=== PATIENT | female | born 1995 | race Caucasian/White ===

== ENCOUNTER 2018-01-29 10:44 | Emergency (ER) | payer MEDICAID, SELFPAY ==
[2018-01-29 10:46] VITALS: BP 127/76; PULSE 72; RESP 19; TEMP 37
--- NOTE | 2018-01-29 10:56 | W.ED.GENAD ---
Discharge Plan Disposition Patient Disposition: HOME Condition: Stable Discharge Details Chief Complaint: Dizzy/Sync Clinical Impression: Syncope ED Provider: Regan Gibson Home Meds and New Rx's Prescriptions: Continue levonorgestrel-ethinyl estrad [Falmina (28)] 1 EACH tablet 1 tab PO DAILY RF: 0 amoxicillin 500 MG capsule RF: 0 nitrofurantoin monohyd/m-cryst [Macrobid] 100 MG capsule 100 mg PO BID Qty: 9 RF: 0 ondansetron 4 MG tablet,disintegrating 4 mg PO QID PRN PRN (Reason: Nausea) Qty: 6 RF: 0 Discharge Instructions Instructions: Syncope (ED) Additional Instructions: Follow up with your primary care provider within 2-3 weeks if you have severe worsening pain or difficulty breathing, or severe headaches return to the emergency department for reevaluation Medical Decision Making 22 yo female comes in with complaint of syncope. She states she has a hx of anxiety and episodes of passing out due to this. States she was meeting with her professor and has been under stress recently in college, felt lightheaded vision went dark and she passed out. Denies any chest pain/pressure, sob, abd pain, vaginal bleeding or headache. She denies any drug use, is caox4 with no focal neuro deficits. 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 No evidence of wpw on ekg. Will eval for anemia and electrolyte abnormalities and chech hcg. She has no evidence of dvt on exam, no tachycardia or hypoxia so do not feel Pe workup indicated labs unremarkable, some evidence of mild dehydration, remains stable here with normal vitals. Feel she is safe for d/c, advised f/u with pcp and return precautions given Differential Diagnosis anxiety, psychogenic syncope, electrolyte abnormality Lab Data Lab results reviewed: Yes I reviewed the patient's lab results. ECG Data Attestation: I personally reviewed and interpreted this ECG (s) as follows: Prior ECG tracings: not available for review Interpretation: sinus rhythm, rate of 68, pr 116, no acute st t wave changes and no evidence of delta waves HPI General Mode of arrival: EMS. Date/Time Provider Initiated Documentation: 01/29/18 10:55. Limitations to Documentation: no limitations. Information obtained by: patient. History of Present Illness 22 year old F presents to the emergency department with the chief complaint of syncope, described as moderate, Patient started experiencing this hour(s) (1) and it has been now resolved. No relieving factors improve symptom(s), No exacerbating factors reported . Patient notes other (anxiety). Patient did receive the following treatments prior to arrival, none Related Data Home Medications Medication Instructions Recorded Confirmed levonorgestrel-ethinyl estrad 1 tab PO DAILY 10/29/15 11/19/15 [Falmina (28)] amoxicillin 11/14/15 nitrofurantoin monohyd/m-cryst 100 mg PO BID #9 capsule 11/14/15 11/19/15 [Macrobid] ondansetron 4 mg PO QID PRN PRN #6 tabef 11/19/15 Previous Rx's Medication Instructions Recorded nitrofurantoin monohyd/m-cryst 100 mg PO BID #9 capsule 11/14/15 [Macrobid] ondansetron 4 mg PO QID PRN PRN #6 tabef 11/19/15 Allergies Allergy/AdvReac Type Severity Reaction Status Date / Time codeine AdvReac Severe Nausea Unverified 11/19/15 16:27 General Stated Complaint: Dizzy/Sync ARMEN: 3 Review of Systems Review of Systems All systems reviewed & are unremarkable except as noted in HPI and below Constitutional Denies chills, Denies fever(s) and Denies weakness ENT Denies change in voice Cardiovascular Denies chest pain and Denies dyspnea Respiratory Denies dyspnea Gastrointestinal Denies abdominal pain, Denies nausea and Denies vomiting Musculoskeletal Denies joint swelling Integumentary/Breasts Denies rash Neurologic Denies weakness Psychiatric Denies homicidal ideation and Denies suicidal ideation Endocrine Denies cold intolerance and Denies heat intolerance [facility] Social History Smoking/Tobacco Use Status: Never Social History Smoking/Tobacco Use Status: Never Exam Const General: no acute distress Orientation: alert HENMO Head: normal to inspection Ears: external ears normal General nose exam: external nose normal Mouth: moist mucous membranes Eyes General: appearance normal, both eyes and all related structures Neck Neck: normal visual inspection Resp Effort & Inspection: normal respiratory effort and able to speak in complete sentences Cardio Rate: regular rate Skin General skin exam: no rashes or lesions noted Neuro General: alert and oriented x3 Extrem General: normal to inspection Psych Mental Status: mental status grossly normal Course Vital Signs Temperature 37.0 C 01/29/18 10:46 Pulse 72 01/29/18 10:46 Respiratory Rate 19 01/29/18 10:46 Blood Pressure 127/76 01/29/18 10:46 Temperature 37.0 C 01/29/18 10:46 Temperature Source Temporal Artery Scan 01/29/18 10:46 Pulse 72 01/29/18 10:46 Respiratory Rate 19 01/29/18 10:46 Blood Pressure 127/76 01/29/18 10:46 Blood Pressure Position Supine 01/29/18 10:46 Oxygen Delivery Method Room Air 01/29/18 10:46 Oxygen Flow Rate 0 01/29/18 10:46 Pain Level 4 01/29/18 10:46
--- NOTE | 2018-01-29 11:09 | ED.GENADUL_ITS ---
Discharge Plan Disposition Patient Disposition: HOME Condition: Stable Discharge Details Chief Complaint: Dizzy/Sync Clinical Impression: Syncope ED Provider: Regan Gibson Home Meds and New Rx's Prescriptions: Continue levonorgestrel-ethinyl estrad [Falmina (28)] 1 EACH tablet 1 tab PO DAILY RF: 0 amoxicillin 500 MG capsule RF: 0 nitrofurantoin monohyd/m-cryst [Macrobid] 100 MG capsule 100 mg PO BID Qty: 9 RF: 0 ondansetron 4 MG tablet,disintegrating 4 mg PO QID PRN PRN (Reason: Nausea) Qty: 6 RF: 0 Discharge Instructions Instructions: Syncope (ED) Additional Instructions: Follow up with your primary care provider within 2-3 weeks if you have severe worsening pain or difficulty breathing, or severe headaches return to the emergency department for reevaluation Medical Decision Making 22 yo female comes in with complaint of syncope. She states she has a hx of anxiety and episodes of passing out due to this. States she was meeting with her professor and has been under stress recently in college, felt lightheaded vision went dark and she passed out. Denies any chest pain/pressure, sob, abd pain, vaginal bleeding or headache. She denies any drug use, is caox4 with no focal neuro deficits. 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 No evidence of wpw on ekg. Will eval for anemia and electrolyte abnormalities and chech hcg. She has no evidence of dvt on exam, no tachycardia or hypoxia so do not feel Pe workup indicated labs unremarkable, some evidence of mild dehydration, remains stable here with normal vitals. Feel she is safe for d/c, advised f/u with pcp and return precautions given Differential Diagnosis anxiety, psychogenic syncope, electrolyte abnormality Lab Data Lab results reviewed: Yes I reviewed the patient's lab results. ECG Data Attestation: I personally reviewed and interpreted this ECG (s) as follows: Prior ECG tracings: not available for review Interpretation: sinus rhythm, rate of 68, pr 116, no acute st t wave changes and no evidence of delta waves HPI General Mode of arrival: EMS . Date/Time Provider Initiated Documentation: 01/29/18 10:55 . Limitations to Documentation: no limitations . Information obtained by: patient . History of Present Illness 22 year old F presents to the emergency department with the chief complaint of syncope, described as moderate, Patient started experiencing this hour(s) (1 ) and it has been now resolved. No relieving factors improve symptom(s), No exacerbating factors reported . Patient notes other (anxiety). Patient did receive the following treatments prior to arrival, none Related Data Home Medications Medication Instructions Recorded Confirmed levonorgestrel-ethinyl estrad 1 tab PO DAILY 10/29/15 11/19/15 [Falmina (28)] amoxicillin 11/14/15 nitrofurantoin monohyd/m-cryst 100 mg PO BID #9 capsule 11/14/15 11/19/15 [Macrobid] ondansetron 4 mg PO QID PRN PRN #6 tabef 11/19/15 Previous Rx's Medication Instructions Recorded nitrofurantoin monohyd/m-cryst 100 mg PO BID #9 capsule 11/14/15 [Macrobid] ondansetron 4 mg PO QID PRN PRN #6 tabef 11/19/15 Allergies Allergy/AdvReac Type Severity Reaction Status Date / Time codeine AdvReac Severe Nausea Unverified 11/19/15 16:27 General Stated Complaint: Dizzy/Sync ARMEN: 3 Review of Systems Review of Systems All systems reviewed & are unremarkable except as noted in HPI and below Constitutional Denies chills, Denies fever(s) and Denies weakness ENT Denies change in voice Cardiovascular Denies chest pain and Denies dyspnea Respiratory Denies dyspnea Gastrointestinal Denies abdominal pain, Denies nausea and Denies vomiting Musculoskeletal Denies joint swelling Integumentary/Breasts Denies rash Neurologic Denies weakness Psychiatric Denies homicidal ideation and Denies suicidal ideation Endocrine Denies cold intolerance and Denies heat intolerance [facility] Social History Smoking/Tobacco Use Status: Never Social History Smoking/Tobacco Use Status: Never Exam Const General: no acute distress Orientation: alert HENDE Head: normal to inspection Ears: external ears normal General nose exam: external nose normal Mouth: moist mucous membranes Eyes General: appearance normal, both eyes and all related structures Neck Neck: normal visual inspection Resp Effort & Inspection: normal respiratory effort and able to speak in complete sentences Cardio Rate: regular rate Skin General skin exam: no rashes or lesions noted Neuro General: alert and oriented x3 Extrem General: normal to inspection Psych Mental Status: mental status grossly normal Course Vital Signs Temperature 37.0 C 01/29/18 10:46 Pulse 72 01/29/18 10:46 Respiratory Rate 19 01/29/18 10:46 Blood Pressure 127/76 01/29/18 10:46 Temperature 37.0 C 01/29/18 10:46 Temperature Source Temporal Artery Scan 01/29/18 10:46 Pulse 72 01/29/18 10:46 Respiratory Rate 19 01/29/18 10:46 Blood Pressure 127/76 01/29/18 10:46 Blood Pressure Position Supine 01/29/18 10:46 Oxygen Delivery Method Room Air 01/29/18 10:46 Oxygen Flow Rate 0 01/29/18 10:46 Pain Level 4 01/29/18 10:46
[2018-01-29 11:12] LABS: Absolute Basophil Count 0.02 k/cumm (0.0-0.2); Absolute Eosinophil Count 0.06 k/cumm (0.0-0.7); Absolute Lymphocyte Count 1.86 k/cumm (1.2-3.4); Absolute Monocyte Count 0.61 k/cumm (0.11-0.7); Absolute Neutrophil Count 2.48 k/cumm (1.2-6.7); Basophils % 0.4; Eosinophils % 1.2; HGB 15.4 g/dL (12.0-15.5); Mean Corp. HGB Concentration 34.2 g/dL (32.0-36.0); Mean Corpuscular Hemoglobin 29.2 pg (27.0-33.0); Mean Corpuscular Volume 85.2 fL (80-95); Mean Platelet Volume 9.6 fL (8.0-11.0); Monocytes % 12.1; Neutrophils % 49.3; Platelet Count 231 x1000/uL (130-400); RBC 5.28 m/cumm (4.00-5.20); RBC Distribution Width 13.3 % (11.7-14.6); White Blood Cell Count 5.03 k/cumm (4.4-10.8)
[2018-01-29 11:25] LABS: ALT 25 U/L (12-78); AST 22 U/L (15-37); Albumin 4.4 g/dL (3.4-5.0); Alkaline Phosphatase 68 U/L (46-116); BUN 16 mg/dL (7-18); Bilirubin, Total 0.6 mg/dL (0.2-1.0); Calcium 9.8 mg/dL (8.5-10.1); Chloride 104 mmol/L (98-107); Glucose 82 mg/dL (70-100); Potassium 4.4 mmol/L (3.5-5.1); Sodium 139 mmol/L (136-145); Total Protein 8.4 g/dL (6.4-8.2)
[2018-01-29 11:43] VITALS: BP 119/75; PULSE 72; RESP 17; TEMP 37.1; O2SAT 98
== END 2018-01-29 12:08 | disposition home or self-care (01) ==
PROVIDERS: Emergency Provider Emergency Medicine; PCP Naturopath
DX: R55 Syncope and collapse (principal)
CPT/HCPCS: 36415; 80053; 93005; 99284; 85025; 93010

== ENCOUNTER 2018-12-12 11:50 | Emergency (ER) | payer MEDICAID, SELFPAY ==
[2018-12-12 11:52] VITALS: BP 142/91; PULSE 88; RESP 16; TEMP 36.4; O2SAT 99
[2018-12-12 12:15] VITALS: RESP 20
[2018-12-12 12:53] LABS: Abs Immature Grans 0.01 k/cumm (0.0-0.09); Absolute Basophil Count 0.01 k/cumm (0.0-0.2); Absolute Eosinophil Count 0.03 k/cumm (0.0-0.7); Absolute Lymphocyte Count 1.65 k/cumm (1.2-3.4); Absolute Monocyte Count 0.43 k/cumm (0.11-0.7); Absolute Neutrophil Count 3.02 k/cumm (1.2-6.7); Basophils % 0.2; Eosinophils % 0.6; HCT 42.2 % (36.0-46.0); HGB 13.9 g/dL (12.0-15.5); Immature Grans % 0.2; Mean Corp. HGB Concentration 32.9 g/dL (32.0-36.0); Mean Corpuscular Hemoglobin 28.5 pg (27.0-33.0); Mean Corpuscular Volume 86.5 fL (80-95); Mean Platelet Volume 9.6 fL (8.0-11.0); Monocytes % 8.3; Neutrophils % 58.7; Platelet Count 237 x1000/uL (130-400); RBC 4.88 m/cumm (4.00-5.20); RBC Distribution Width 13.6 % (11.7-14.6); White Blood Cell Count 5.15 k/cumm (4.4-10.8)
[2018-12-12] MEDS: Normal Saline 1,000 ML 1000 ML IV (12:55)
[2018-12-12] MEDS: Normal Saline Flush 10 ML SYR IVP (12:56)
[2018-12-12 12:57] LABS: ALT 14 U/L (14-59); AST 16 U/L (15-37); Alkaline Phosphatase 51 U/L (46-116); BUN 16 mg/dL (7-18); Bilirubin, Total 0.4 mg/dL (0.2-1.0); CREATININE 1.09 mg/dL (0.55-1.02); Calcium 9.1 mg/dL (8.5-10.1); Chloride 103 mmol/L (98-107); Glucose 84 mg/dL (70-100); Magnesium 1.9 mg/dL (1.8-2.4); Sodium 139 mmol/L (136-145); Total Protein 7.8 g/dL (6.4-8.2)
[2018-12-12 12:59] LABS: Bilirubin Negative (Negative); Blood Negative (Negative); Clarity Clear (Clear); Glucose Negative (Negative); Ketones Negative (Negative); Leukocyte Esterase Negative (Negative); Nitrite Negative (Negative); Specific Gravity 1.025 (1.005-1.025); Urobilinogen 0.2 EU/dL (Up TO 0.2); pH 5.5 (5-8)
--- NOTE | 2018-12-12 13:03 | W.ED.GENAD ---
Discharge Plan Disposition Patient Disposition: HOME Condition: Improving Discharge Details Chief Complaint: GenMedical Clinical Impression: Spasm of thoracic back muscle Primary Care Provider: Ria Paulson ED Provider: Lei Jacinto Home Meds and New Rx's Prescriptions: No Action levonorgestrel-ethinyl estrad [Falmina (28)] 1 EACH tablet 1 tab PO DAILY RF: 0 ondansetron 4 MG tablet,disintegrating 4 mg PO QID PRN PRN (Reason: Nausea) Qty: 6 RF: 0 fluoxetine [Prozac] 10 mg Capsule 10 mg PO DAILY RF: 0 Discharge Instructions Instructions: Muscle Spasm (ED) Additional Instructions: Continue to stay well-hydrated and get plenty of rest and reduce any significant physical activity. You may continue to take 600 mg of ibuprofen every 6 hours as needed for discomfort. If lidocaine patch is effective you may purchase these [id number] and use as directed on packaging. Return immediately to the emergency department for any new or significant worsening of symptoms otherwise follow-up with your primary care provider Stand Alone Forms: School Release Referrals: Ria Paulson [Primary Care Provider] - (As needed for reassessment or if not improving) Discharge Data Discharge Date/Time-TO BE ENTERED AT DEPARTURE: 12/12/18 14:25 Medical Decision Making Patient presenting to the emergency department for chief complaint of back pain. Patient states that this started yesterday evening and feels sharpening and spasming in nature. Patient does report that 2 days ago she was mountain biking and testing out mountain bikes and when she finished riding she stood up off the bike and noted some lightheadedness that then turned into a syncopal event. Patient did call EMS but by the time they got there her symptoms had fully resolved. Since then she has noted some odd and intermittent muscle cramping. Patient does state history of vasovagal events in the past and so the syncopal episode is not completely uncommon to her. Patient denies any chest pain, shortness of breath, or difficulty breathing. Physical exam shows significant muscular spasm with movement to the mid thoracic spine and patient is slightly anxious otherwise unremarkable exam. Given patient's muscular spasms plan to check labs. Patient given IV fluids pending test and labs. After review of labs that show a mild increase of creatinine and otherwise unremarkable CBC CMP and magnesium patient was reassessed. Patient stated significant improvement of symptoms but did have some mild continued spasms. Patient offered ketorolac, Flexeril, lidocaine patch. Patient actually denied any of these medications given that she is feeling significant better after fluids. Given otherwise unremarkable work-up and physical exam showing muscular spasms with symptoms improving I do not feel that any other interventions are needed for muscular spasms. Given syncopal event close return precautions were discussed with patient. For pain and discomfort patient was encouraged to use 600 mg of ibuprofen every 6 hours as needed. After discussion of diagnosis and plan of care patient has no further needs, questions, or concerns and states clear understanding to return to the emergency department for any worsening symptoms. HPI General Mode of arrival: ambulatory. Date/Time Provider Initiated Documentation: 12/12/18 12:01. Limitations to Documentation: no limitations. Information obtained by: patient and RN notes reviewed. History of Present Illness 23 year old F presents to the emergency department with the chief complaint of left rib pain, described as moderate, with intensity rated at 7. Quality is described as sharp, and is localized to the chest and left (Posterior). Patient started experiencing this day(s) (1) and it has been intermittent. Rest improves symptom(s), Movement worsens symptoms . Patient did receive the following treatments prior to arrival, none Related Data Home Medications Medication Instructions Recorded Confirmed levonorgestrel-ethinyl estrad 1 tab PO DAILY 10/29/15 12/12/18 [Falmina (28)] ondansetron 4 mg PO QID PRN PRN #6 tabef 11/19/15 12/12/18 fluoxetine [Prozac] 10 mg PO DAILY 12/12/18 12/12/18 Previous Rx's Medication Instructions Recorded ondansetron 4 mg PO QID PRN PRN #6 tabef 11/19/15 Allergies Allergy/AdvReac Type Severity Reaction Status Date / Time codeine AdvReac Severe Nausea Unverified 12/12/18 11:57 General Stated Complaint: GenMedical ARMEN: 3 Review of Systems Constitutional Constitutional: Reports fatigue, Denies fever(s), Denies headache(s) and Reports malaise ENT Ears, Nose, Mouth, and Throat: Denies headache(s) Cardiovascular Cardiovascular: Reports syncope, Reports lightheadedness, Denies palpitations and Denies dyspnea Respiratory Respiratory: Denies cough and Denies dyspnea Gastrointestinal Gastrointestinal: Denies abdominal pain, Reports nausea and Denies vomiting Neurologic Neurologic: Reports syncope, Denies headache(s) and Denies sensory deficit Endocrine Endocrine: Reports fatigue and Denies palpitations [facility] Social History Smoking/Tobacco Use Status: Never Drug use: Socially Substance use type: marijuana Do you feel safe in your relationship?: Yes Exam Const General: cooperative, healthy appearing, no acute distress and well groomed Orientation: alert, awake and oriented x3 HENMT Head: normal to inspection Mouth: oral mucosae normal and moist mucous membranes Throat: posterior oropharynx normal, tonsils normal and uvula midline Eyes Visual Rangel: normal visual rangel by confrontation Alignment and Position: alignment normal Periorbital: periorbital findings normal Eyelids: eyelids normal Sclera: sclerae normal Cornea: corneas normal Pupils: PERRL EOM: EOM intact bilaterally Neck Neck: normal visual inspection, full ROM, no lymphadenopathy and no meningeal signs Resp Effort & Inspection: normal respiratory effort and able to speak in complete sentences Auscultation: clear to auscultation bilaterally Cardio Rate: regular rate Rhythm: regular rhythm Heart Sounds: S1 normal and S2 normal Neuro General: alert, awake, oriented x3, gait normal, tone normal, moves all extremities and not confused Cognition: normal cognition Speech: speech normal Motor: muscle tone normal throughout, strength 5/5 throughout and no pronator drift Sensory Exam: no sensory deficits noted Course Vital Signs Vital signs: Vital Signs Temperature 36.4 C L 12/12/18 11:52 Pulse 88 12/12/18 11:52 Respiratory Rate 16 12/12/18 11:52 Blood Pressure 142/91 H 12/12/18 11:52 Pulse Oximetry 99 12/12/18 11:52 Temperature 36.4 C L 12/12/18 11:52 Temperature Source Skin 12/12/18 11:52 Pulse 88 12/12/18 11:52 Respiratory Rate 16 12/12/18 11:52 Respiratory Effort 12/12/18 11:59 Blood Pressure 142/91 H 12/12/18 11:52 Blood Pressure Position Sitting 12/12/18 11:52 Pulse Oximetry 99 12/12/18 11:52 Oxygen Delivery Method Room Air 12/12/18 11:52 Oxygen Flow Rate 0 12/12/18 11:52 Lab/Test Results Lab/Test Results: Laboratory Tests Range/Units 12/12/18 12/12/18 12:37 12:45 WBC (4.4-10.8) k/cumm 5.15 RBC (4.00-5.20) m/cumm 4.88 Hgb (12.0-15.5) g/dL 13.9 Hct (36.0-46.0) % 42.2 MCV (80-95) fL 86.5 MCH (27.0-33.0) pg 28.5 MCHC (32.0-36.0) g/dL 32.9 RDW (11.7-14.6) % 13.6 Plt Count (130-400) x1000/uL 237 MPV (8.0-11.0) fL 9.6 Immature Gran % 0.2 Neutrophils % 58.7 Lymphocytes % 32.0 Monocytes % 8.3 Eosinophils % 0.6 Basophils % 0.2 Absolute Neutrophils (1.2-6.7) k/cumm 3.02 Absolute Lymphocytes (1.2-3.4) k/cumm 1.65 Absolute Monocytes (0.11-0.7) k/cumm 0.43 Absolute Eosinophils (0.0-0.7) k/cumm 0.03 Absolute Basophils (0.0-0.2) k/cumm 0.01 Urine Color (Yellow) Yellow Urine Clarity (Clear) Clear Urine pH (5-8) 5.5 Ur Specific [place] (1.005-1.025) 1.025 Urine Protein (Negative) mg/dL Negative Urine Ketones (Negative) mg/dL Negative Urine Blood (Negative) Negative Urine Nitrite (Negative) Negative Urine Bilirubin (Negative) Negative Urine Urobilinogen (Up TO 0.2) EU/dL 0.2 Ur Leukocyte Esterase (Negative) Negative Urine Glucose (Negative) mg/dL Negative POC- Test(urine) Negative
[2018-12-12] MEDS: Lidocaine 5% Patch 1 PATCH TP (14:08)
[2018-12-12 14:27] VITALS: BP 118/72; PULSE 72; RESP 18; O2SAT 99
== END 2018-12-12 14:25 | disposition home or self-care (01) ==
PROVIDERS: Emergency Provider Nurse Practitioner Family; PCP Naturopath
DX: M62.830 Muscle spasm of back (principal)
CPT/HCPCS: 36415; 80053; 81025; 96361; 96374; 99284; 81003; 83735; 85025